=== PATIENT | female | born 1950 | race Native Hawaiian/Other Pacific Islander ===

== ENCOUNTER 2023-01-13 20:29 | Emergency (ER) | payer OTHER ==
[~2023-01-13] VITALS: Ht 162.6 cm; Wt 38.6 kg
[2023-01-13 20:30] VITALS: TEMP 98.6
[2023-01-13 21:26] LABS: PLATELET COUNT 272 K/uL (152-353)
[2023-01-13 21:53] LABS: POTASSIUM 4.4 mmol/L (3.6-5.2)
[2023-01-14 02:40] VITALS: BP 163/81
[2023-01-14] MEDS ORDERED: ALBUTEROL0.083 % INH (06:36)
[2023-01-14] MEDS ORDERED: ASPIRIN LOW81 MG PO (06:37)
[2023-01-14] MEDS ORDERED: ALLERGY10 M2 PO (06:37)
[2023-01-14] MEDS ORDERED: DICL50TA PO (06:38)
[2023-01-14] MEDS ORDERED: VENLAFAXINE ER PO (06:39)
[2023-01-14] MEDS ORDERED: FLONASE AL50 MCG/ACT NAS (06:40)
[2023-01-14] MEDS ORDERED: HALO5INJ3 INJ (06:41)
[2023-01-14] MEDS ORDERED: HYDR200T3 PO (06:42)
[2023-01-14] MEDS ORDERED: MONT10TA PO (06:43)
[2023-01-14] MEDS ORDERED: MIRTAZAPINE PO (06:43)
[2023-01-14] MEDS ORDERED: NICOTINE S21 MG/24 H TOP (06:44)
[2023-01-14] MEDS ORDERED: NOVOLOG FL100 UNIT/M SC (09:31)
[2023-01-14] MEDS ORDERED: OMEP40CA PO (09:32)
[2023-01-14] MEDS ORDERED: PRAVASTATIN PO (09:33)
[2023-01-14] MEDS ORDERED: PSEUDOEPHEDRINE30 MG PO (09:34)
[2023-01-14] MEDS ORDERED: TRELEGY ELLIPTA1 AER INH (09:35)
[2023-01-14] MEDS ORDERED: ALBU90AE13 INH (09:36)
[2023-01-21] MEDS ORDERED: ACET-206 PO (10:18)
[2023-01-21] MEDS ORDERED: Voltaren GEL 1% 100G TOP (10:19)
[2023-01-21] MEDS ORDERED: CETI10TA PO (10:19)
[2023-01-21] MEDS ORDERED: ASPI81TA4 PO (10:19)
[2023-01-21] MEDS ORDERED: ESCI10TA PO (10:19)
[2023-01-21] MEDS ORDERED: ALBU90AE13 INH (10:19)
[2023-01-21] MEDS ORDERED: Flonase Nasal Inhale NAS (10:19)
[2023-01-21] MEDS ORDERED: MEGE40TA32 PO (10:20)
[2023-01-21] MEDS ORDERED: MONT10TA PO (10:20)
[2023-01-21] MEDS ORDERED: PANTOPRAZOLE 40MG TA PO (10:20)
[2023-01-21] MEDS ORDERED: HYDR200T3 PO (10:20)
[2023-01-21] MEDS ORDERED: NICODERM CQ 21MG/HR TOP (10:20)
== END 2023-01-14 02:40 | disposition still patient (30) ==
LOC: ED 20:29
PROVIDERS: Family Medicine
DX: R45.1 Restlessness and agitation (principal); F03.90 Unspecified dementia, unspecified severity, without behavioral disturbance, psychotic disturbance, mood disturbance, and anxiety; F20.9 Schizophrenia, unspecified; F41.9 Anxiety disorder, unspecified; W19.XXXA Unspecified fall, initial encounter; Z02.79 Encounter for issue of other medical certificate
CPT/HCPCS: 36415; 80053; 81002; 85027; 87635; 93005; 99283; U0003